=== PATIENT | male | born 1970 | race Caucasian/White ===

== ENCOUNTER 2022-01-07 08:59 | Emergency (ER) | payer OTHER ==
[~2022-01-07 08:59] MED LIST: AUGMENTIN 875-1 EACH PO; ROBITUSSIN AC480 ML PO
[2022-01-07 10:36] LABS: HEMOGLOBIN 16.4 gm/dl (14.0-17.5); RED BLOOD COUNT 5.21 M/UL (4.20-5.50)
[2022-01-07 10:59] LABS: BUN/CREATININE RATIO 8 (0-10)
== END 2022-01-07 12:24 | disposition home or self-care (01) ==
LOC: ER1 08:59
PROVIDERS: Physician Assistant Medical
DX: R51.9 Headache, unspecified (principal); M54.50 Low back pain, unspecified; I10 Essential (primary) hypertension; F17.210 Nicotine dependence, cigarettes, uncomplicated
CPT/HCPCS: 72100; 80053; 81001; 85025; 99283

== ENCOUNTER 2022-06-10 23:57 | Emergency (ER) | payer BC, OTHER ==
[2022-06-11 00:35] LABS: HEMOGLOBIN 17.8 gm/dl (14.0-17.5); RED BLOOD COUNT 5.43 M/UL (4.20-5.50); WHITE BLOOD COUNT 18.2 K/UL (4.5-11.0)
== END 2022-06-11 03:50 | disposition home or self-care (01) ==
LOC: ER1 23:57
PROVIDERS: Family Medicine
DX: R07.9 Chest pain, unspecified (principal); R10.10 Upper abdominal pain, unspecified; F17.210 Nicotine dependence, cigarettes, uncomplicated
CPT/HCPCS: 71045; 80053; 82550; 82553; 83690; 84484; 85025; 93005; 99285; Q9967